=== PATIENT | female | born 1930 | race Caucasian/White ===

== ENCOUNTER 2017-10-18 18:53 | Inpatient (IN) | payer OTHER, BC ==
[~2017-10-18] VITALS: Ht 157.5 cm; Wt 80.0 kg
[~2017-10-18 18:53] MED LIST: ADULT LOW DOSE81 M1 PO; ATARAX,VISTARIL25 MG PO; CARVEDILOL3.125 MG PO; CELEXA20 MG PO; CELEXA40 MG PO; FOLIC ACID1 MG PO; FOLIC ACID20 MG PO; FUROSEMIDE20 MG PO; HYDROCODON-ACE1 EAC7 PO; ISOSORBIDE DINI30 MG PO; ISOSORBIDE MONO30 MG PO; LANTUS 10100 UNITS/ SC; LANTUS 3 M100 UNITS1 SC; LEVEMIR100 UNIT/2 SC; LIDOCAINE700 MG TD; MICRO-K10 ME1 PO; NOVOLOG 10100 UNITS/ SC; OXYCODONE HCL5 MG PO; PERMETHRIN60 GM TP; PLAVIX75 MG PO; STOOL SOFTENER250 MG PO; TEMOVATE 0.05%15 G1 TP; VITAMIN D31000 UNI1 PO; ZOCOR20 MG PO
[2017-10-18 19:48] LABS: HEMATOCRIT 40.7 % (36.0-46.0); HEMOGLOBIN 13.9 G/DL (11.9-15.5); MCH 29.4 PG (29.0-34.0); MCHC 34.2 G/DL (30.0-36.0); PLATELET COUNT 73 K/uL (156-360); RBC DIS.WIDTH-CV 13.7 % (11.8-14.6); RBC DIS.WIDTH-SD 43.1 % (39-53); RED BLOOD COUNT 4.73 M/uL (3.80-5.20); WHITE BLOOD COUNT 9.2 K/uL (4.1-10.2)
[2017-10-18 19:57] LABS: CHLORIDE 101 mEq/L (99-109); POTASSIUM 4.4 mEq/L (3.7-5.4); SODIUM 137 mEq/L (136-147)
[2017-10-18 19:58] LABS: GLUCOSE 184 mg/dL (70-99)
[2017-10-18 20:02] LABS: CREATININE 0.8 mg/dL (0.6-1.3); GFR ESTIMATE (CALCULATED) > 59 mL/min/
[2017-10-18 20:03] LABS: UREA NITROGEN (BUN) 15 mg/dL (9-23)
[2017-10-18 20:08] LABS: TROP-I INTERPRETATION NEGATIVE; TROPONIN-I < 0.01 ng/mL (0.0-0.30)
[2017-10-18] MEDS ORDERED: LANTUS 3 M100 UNITS1 SC (22:37)
[2017-10-18] MEDS ORDERED: TYLENOL EXTRA500 MG PO (22:38)
[2017-10-18] MEDS ORDERED: PLAVIX75 MG PO (22:38)
[2017-10-18] MEDS ORDERED: ZOLOFT25 MG PO (22:38)
[2017-10-18] MEDS ORDERED: NITROSTAT0.4 MG SL (22:38)
[2017-10-19 04:26] LABS: HEMATOCRIT 40.6 % (36.0-46.0); HEMOGLOBIN 13.8 G/DL (11.9-15.5); MCH 29.2 PG (29.0-34.0); PLATELET COUNT 71 K/uL (156-360); RBC DIS.WIDTH-CV 13.5 % (11.8-14.6); RBC DIS.WIDTH-SD 42.4 % (39-53); RED BLOOD COUNT 4.72 M/uL (3.80-5.20); WHITE BLOOD COUNT 8.1 K/uL (4.1-10.2)
[2017-10-19 04:36] LABS: ALBUMIN 3.6 g/dL (3.2-4.8); CHLORIDE 103 mEq/L (99-109); POTASSIUM 4.4 mEq/L (3.7-5.4); SODIUM 139 mEq/L (136-147)
[2017-10-19 04:38] LABS: TOTAL PROTEIN 7.1 g/dL (6.4-8.3)
[2017-10-19 04:40] LABS: TOTAL BILIRUBIN 0.3 mg/dL (0.0-1.0)
[2017-10-19 04:42] LABS: ALKALINE PHOSPHATASE 53 IU/L (3-129); CREATININE 0.8 mg/dL (0.6-1.3); GFR ESTIMATE (CALCULATED) > 59 mL/min/
[2017-10-19 04:43] LABS: AST (GOT) 22 IU/L (2-34); UREA NITROGEN (BUN) 14 mg/dL (9-23)
[2017-10-19 04:45] LABS: ALT (GPT) 14 IU/L (3-49)
[2017-10-19 04:52] LABS: GLUCOSE 303 mg/dL (70-99)
[2017-10-19 05:58] VITALS: BP 129/60
[2017-10-19 07:26] VITALS: BP 140/66
[2017-10-19 11:06] VITALS: BP 119/78
[2017-10-19 15:08] VITALS: BP 121/58
[2017-10-19 19:20] VITALS: BP 141/66
[2017-10-20 00:14] VITALS: BP 166/75
[2017-10-20 03:34] VITALS: BP 163/72
[2017-10-20 06:15] LABS: BASOPHIL (%) 0.1 % (0-1); EOSINOPHIL (%) 0 % (0-5); HEMOGLOBIN 13.2 G/DL (11.9-15.5); IMMATURE GRANULOCYTE (%) 0.4 % (0.0-0.7); LYMPHOCYTE (%) 23.4 % (15-42); LYMPHOCYTE COUNT 2.3 K/uL (1.0-2.8); MCH 28.8 PG (29.0-34.0); MCV 87.3 FL (83-99); MONOCYTE (%) 3.4 % (3-12); MONOCYTE COUNT 0.3 K/uL (0-0.8); NEUTROPHIL (%) 72.7 % (45-76); NEUTROPHIL COUNT 7.1 K/uL (1.8-6.4); PLATELET COUNT 86 K/uL (156-360); RBC DIS.WIDTH-CV 13.7 % (11.8-14.6); RBC DIS.WIDTH-SD 43.7 % (39-53); RED BLOOD COUNT 4.58 M/uL (3.80-5.20); WHITE BLOOD COUNT 9.8 K/uL (4.1-10.2)
[2017-10-20 06:59] LABS: CHLORIDE 102 MEQ/L (99-109); CREATININE 0.7 MG/DL (0.6-1.3); GFR ESTIMATE (CALCULATED) > 59 mL/min/; GLUCOSE 265 mg/dL (70-99); POTASSIUM 4.9 MEQ/L (3.7-5.4); SODIUM 139 MEQ/L (136-147); UREA NITROGEN (BUN) 19 mg/dL (9-23)
[2017-10-20 07:55] VITALS: BP 149/67
[2017-10-20 09:55] LABS: HEMOGLOBIN A1c (GLYCOHEMOGLOB) 6.8 % (Below 5.7)
[2017-10-20 13:45] VITALS: BP 124/59
[2017-10-20 16:25] VITALS: BP 132/63
[2017-10-20 19:39] VITALS: BP 126/60
[2017-10-21 00:09] VITALS: BP 136/58
[2017-10-21 07:11] VITALS: BP 172/71
[2017-10-21 07:15] LABS: CHLORIDE 102 MEQ/L (99-109); CREATININE 0.7 MG/DL (0.6-1.3); GFR ESTIMATE (CALCULATED) > 59 mL/min/; GLUCOSE 173 mg/dL (70-99); POTASSIUM 4.4 MEQ/L (3.7-5.4); SODIUM 140 MEQ/L (136-147); UREA NITROGEN (BUN) 22 mg/dL (9-23)
[2017-10-21 10:20] LABS: BASOPHIL (%) 0.2 % (0-1); EOSINOPHIL (%) 0 % (0-5); HEMATOCRIT 38.4 % (36.0-46.0); HEMOGLOBIN 12.5 G/DL (11.9-15.5); IMMATURE GRANULOCYTE (%) 0.4 % (0.0-0.7); LYMPHOCYTE (%) 19.5 % (15-42); LYMPHOCYTE COUNT 2.3 K/uL (1.0-2.8); MCH 28.7 PG (29.0-34.0); MCHC 32.6 G/DL (30.0-36.0); MCV 88.1 FL (83-99); MONOCYTE (%) 3.7 % (3-12); MONOCYTE COUNT 0.5 K/uL (0-0.8); NEUTROPHIL (%) 76.2 % (45-76); NEUTROPHIL COUNT 9.2 K/uL (1.8-6.4); PLATELET COUNT 100 K/uL (156-360); RBC DIS.WIDTH-CV 13.7 % (11.8-14.6); RBC DIS.WIDTH-SD 44.5 % (39-53); RED BLOOD COUNT 4.36 M/uL (3.80-5.20)
[2017-10-21 10:49] VITALS: BP 120/60
[2017-10-21 15:14] VITALS: BP 118/64
[2017-10-21 19:22] VITALS: BP 132/63
[2017-10-22 00:05] VITALS: BP 142/66
[2017-10-22 00:06] VITALS: BP 142/66
[2017-10-22 04:03] VITALS: BP 154/72
[2017-10-22 07:17] VITALS: BP 147/71
[2017-10-22 07:46] LABS: HEMATOCRIT 39.5 % (36.0-46.0); HEMOGLOBIN 13.1 G/DL (11.9-15.5); MCH 28.8 PG (29.0-34.0); MCHC 33.2 G/DL (30.0-36.0); MCV 86.8 FL (83-99); PLATELET COUNT 99 K/uL (156-360); RBC DIS.WIDTH-CV 13.6 % (11.8-14.6); RBC DIS.WIDTH-SD 43.1 % (39-53); RED BLOOD COUNT 4.55 M/uL (3.80-5.20); WHITE BLOOD COUNT 10.5 K/uL (4.1-10.2)
[2017-10-22 08:09] LABS: CHLORIDE 101 MEQ/L (99-109); CREATININE 0.6 MG/DL (0.6-1.3); GFR ESTIMATE (CALCULATED) > 59 mL/min/; GLUCOSE 165 mg/dL (70-99); POTASSIUM 4.3 MEQ/L (3.7-5.4); SODIUM 140 MEQ/L (136-147); UREA NITROGEN (BUN) 21 mg/dL (9-23)
[2017-10-22] MEDS ORDERED: VENTOLIN HFA18 GM IH (10:18)
[2017-10-22] MEDS ORDERED: DUONEB 2.5-0.5 M3 ML AEROSOL (10:18)
[2017-10-22] MEDS ORDERED: PREDNISONE10 MG PO (10:18)
[2017-10-22] MEDS ORDERED: ADVAIR HFA120 INHALA IH (10:18)
[2017-10-22] MEDS ORDERED: OSELTAMIVIR PHO30 MG PO (10:18)
[2017-10-22] MEDS ORDERED: AERONEB GO NEB1 EACH MC (10:18)
[2017-10-22] MEDS ORDERED: CEFDINIR300 MG PO (10:23)
[2017-10-22 10:59] VITALS: BP 140/68
[2017-10-22] MEDS ORDERED: GLUCOPHAGE500 MG PO (11:35)
== END 2017-10-22 16:23 | disposition home or self-care (01) | DRG 189 ==
LOC: EME 18:53 → 5SOUTH 10-19 01:39 → EDOF 10-19 01:39 → ENRESERV 10-19 01:41 → 5SOUTH 10-19 05:34 → ENPENDDIS 10-22 12:18 → 5SOUTH 10-22 16:23
PROVIDERS: Hospitalist; Internal Medicine; Physician Assistant Medical
DX: J96.01 Acute respiratory failure with hypoxia (principal); J10.00 Influenza due to other identified influenza virus with unspecified type of pneumonia; J18.9 Pneumonia, unspecified organism; J10.1 Influenza due to other identified influenza virus with other respiratory manifestations; J20.9 Acute bronchitis, unspecified; J98.11 Atelectasis; J45.909 Unspecified asthma, uncomplicated; E11.9 Type 2 diabetes mellitus without complications; I25.10 Atherosclerotic heart disease of native coronary artery without angina pectoris; I10 Essential (primary) hypertension; E78.5 Hyperlipidemia, unspecified; M19.90 Unspecified osteoarthritis, unspecified site; M79.1 Myalgia; F32.9 Major depressive disorder, single episode, unspecified; F41.9 Anxiety disorder, unspecified; E66.9 Obesity, unspecified; Z68.32 Body mass index [BMI] 32.0-32.9, adult; Z95.5 Presence of coronary angioplasty implant and graft; Z79.4 Long term (current) use of insulin; Z80.9 Family history of malignant neoplasm, unspecified; Z87.442 Personal history of urinary calculi; Z90.710 Acquired absence of both cervix and uterus
CPT/HCPCS: 71046; 71275; 80048; 80053; 82948; 83036; 84484; 85025; 85025 91; 85027; 85379; 87070; 87205; 87502; 93005; 94640; 94640 76; 94799; 99202; 99281; 99285; J0696; J1644; J1815; J2920; J2930; J7030; J7512